=== PATIENT | female | born 1990 | race Caucasian/White ===

== ENCOUNTER 2021-03-13 03:30 | Emergency (ER) | payer SELFPAY ==
[~2021-03-13] VITALS: Ht 167.6 cm; Wt 63.5 kg
[2021-03-13 03:35] VITALS: BP_SYST 124
--- NOTE | 2021-03-13 03:35 | NUR ---
Patient to ER CHAIR 1 for evaluation. Report given to ELIZABETH ANSARI.
--- NOTE | 2021-03-13 03:41 | NUR ---
Patient BIB by [facility]. C/O Medical clearance x today. Per reported, patient had abrasion left elbow . Patient denies pain this time. A/O,X4, left elbow abrasion, no pain.
--- NOTE | 2021-03-13 04:10 | NUR ---
ER Dr. Telles at bedside examining patient.
--- NOTE | 2021-03-13 04:24 | NUR ---
Cleaned abrasion wound with NSS and applied Bacitracin.
[2021-03-13 04:30] VITALS: BP_SYST 122
--- NOTE | 2021-03-13 04:30 | NUR ---
Patient D/C to costody with [facility].
[2021-03-13] MEDS ORDERED: BACITRACIN 1 GM OINT TP ONE (04:33)
== END 2021-03-13 04:30 | disposition home or self-care (01) ==
LOC: SED 03:30
DX: S50.312A Abrasion of left elbow, initial encounter (principal); Y35.893A Legal intervention involving other specified means, suspect injured, initial encounter; Y93.89 Activity, other specified; Y92.89 Other specified places as the place of occurrence of the external cause; Y99.8 Other external cause status
CPT/HCPCS: 99283